=== PATIENT | male | born 2000 | race Caucasian/White ===

== ENCOUNTER 2020-12-10 13:54 | Emergency (ER) | payer BC ==
[~2020-12-10] VITALS: Ht 177.8 cm; Wt 104.5 kg
[2020-12-10 14:09] VITALS: BP 188/92
== END 2020-12-10 15:19 | disposition left against medical advice (07) ==
LOC: ER 13:54
DX: T67.5XXA Heat exhaustion, unspecified, initial encounter (principal); Z53.21 Procedure and treatment not carried out due to patient leaving prior to being seen by health care provider